=== PATIENT | male | born 1970 | race Hispanic/Latino ===

== ENCOUNTER 2021-01-12 20:04 | Observation (INO) | payer MEDICARE ==
[~2021-01-12] VITALS: Ht 165.1 cm; Wt 67.0 kg
[2021-01-12 21:10] LABS: BASOPHILS % (AUTO) 0.5 % (0.0-5.0); EOSINOPHILS % (AUTO) 4.5 % (0.0-8.0); LYMPHOCYTES % (AUTO) 25.8 % (21.0-51.0); MEAN CORPUSCULAR HEMOGLOBIN 31.4 pg (27.0-33.0); MEAN CORPUSCULAR HGB CONC 34.1 g/dL (32.0-36.0); MEAN CORPUSCULAR VOLUME 92.2 fL (79-99); MONOCYTES % (AUTO) 9.6 % (3.0-13.0); NEUTROPHILS % (AUTO) 59.3 % (40.0-77.0); PLATELET COUNT (AUTO) 236 K/uL (130-400); RED BLOOD CELL COUNT(AUTO) 3.47 MIL/uL (4.50-6.20); RED CELL DISTRIBUTION WIDTH 11.8 % (11.0-15.5); WHITE BLOOD COUNT (AUTO) 7.6 K/uL (4.8-10.8)
[2021-01-12 21:25] LABS: CREATININE 1.6 mg/dL (0.5-1.5); POTASSIUM 3.6 mmol/L (3.5-5.1)
[2021-01-12 21:29] LABS: ALBUMIN 3.6 g/dL (3.5-5.0); BILIRUBIN,TOTAL 0.4 mg/dL (0.2-1.0); MAGNESIUM 1.6 mg/dL (1.80-2.40); TOTAL PROTEIN, SERUM 7.6 g/dL (6.0-8.3)
[2021-01-12 21:51] VITALS: BP 134/82
[2021-01-12] MEDS ORDERED: FENO48TA9 PO (22:54)
[2021-01-12] MEDS ORDERED: RISP0.5T61 PO (22:54)
[2021-01-12] MEDS ORDERED: LAMO150T PO (22:54)
[2021-01-12] MEDS ORDERED: LACT10SO62 PO (22:54)
[2021-01-12] MEDS ORDERED: CLON1TAB12 PO (22:54)
[2021-01-12] MEDS ORDERED: FLUO40CA7 PO (22:54)
[2021-01-12] MEDS ORDERED: BROM5CAP3 PO (22:54)
[2021-01-12] MEDS ORDERED: LUBI24CA2 PO (22:54)
[2021-01-12] MEDS ORDERED: CYAN25006 PO (22:54)
[2021-01-12] MEDS ORDERED: FOLI0.8T3 PO (22:54)
[2021-01-12] MEDS ORDERED: FISH1CAP20 PO (22:54)
[2021-01-12] MEDS ORDERED: PROP10TA72 PO (22:54)
[2021-01-12] MEDS ORDERED: BISA10SU11 RC (22:54)
[2021-01-12] MEDS ORDERED: LEVO88CA4 PO (22:54)
[2021-01-12] MEDS ORDERED: [UNRECOGNIZED DRUG - CODE] PO (22:54)
[2021-01-12] MEDS ORDERED: PHARMACY COMMUNICATION MISC SCH (23:45)
[2021-01-13] MEDS ORDERED: ACETAMINOPHEN 325 MG TAB PO PRN ×2
[2021-01-13] MEDS ORDERED: 0.9% NACL 500ML IV.SOLN 500 ML IV SCH
[2021-01-13] MEDS ORDERED: LEVETIRACETAM 500 MG/5 ML SD VIAL IV ONE (00:26)
[2021-01-13] MEDS ORDERED: LEVETIRACETAM 1,000 MG in 0.9%NACL 100ML 100 ML IV ONE (00:30)
[2021-01-13] MEDS ORDERED: PHARMACY COMMUNICATION MISC SCH (00:30)
[2021-01-13 05:15] VITALS: BP 135/67
[2021-01-13] MEDS ORDERED: LEVETIRACETAM 1,000 MG in 0.9%NACL 100ML 100 ML IV SCH (06:00)
[2021-01-13 06:39] LABS: HEMATOCRIT 32.5 % (42-54); MEAN CORPUSCULAR HEMOGLOBIN 30.8 pg (27.0-33.0); MEAN CORPUSCULAR HGB CONC 33.8 g/dL (32.0-36.0); RED BLOOD CELL COUNT(AUTO) 3.57 MIL/uL (4.50-6.20); RED CELL DISTRIBUTION WIDTH 11.6 % (11.0-15.5)
[2021-01-13 06:49] LABS: CREATININE 1.4 mg/dL (0.5-1.5); POTASSIUM 3.8 mmol/L (3.5-5.1)
[2021-01-13] MEDS: FAMOTIDINE 20MG VIAL IV SCH ×2 (07:42→21:08)
[2021-01-13] MEDS: LEVETIRACETAM 500 MG TABLET PO SCH ×2 (07:42→21:08)
[2021-01-13] MEDS ORDERED: LORAZEPAM 2 MG/ML 1 ML VIAL ONE ×2 (11:19→22:25)
[2021-01-13] MEDS ORDERED: LORAZEPAM 2 MG/ML 1 ML VIAL IVP SCH (11:30)
[2021-01-13 11:31] VITALS: BP 151/82
[2021-01-13 17:49] VITALS: BP 119/58
[2021-01-13 20:12] VITALS: BP 126/84
[2021-01-13] MEDS ORDERED: DiphenhydrAMINE HCL 50 MG/ML VIAL ONE (22:26)
[2021-01-13] MEDS ORDERED: LORAZEPAM 2 MG/ML 1 ML VIAL IVP PRN (23:00)
[2021-01-13] MEDS ORDERED: DiphenhydrAMINE HCL 50 MG/ML VIAL IV PRN (23:00)
[2021-01-14] VITALS: BP 126/63
[2021-01-14 04:00] VITALS: BP 157/66
[2021-01-14] MEDS: LEVETIRACETAM 500 MG TABLET PO SCH (09:00)
[2021-01-14] MEDS: FAMOTIDINE 20MG VIAL IV SCH (09:00)
== END 2021-01-14 16:15 ==
LOC: EDH 20:06 → EDSEX 20:06 → EDHIP 23:49 → 3BH 01-13 22:40
PROVIDERS: ADMIT Family Medicine; ATTEND Family Medicine
DX: G40.909 Epilepsy, unspecified, not intractable, without status epilepticus (principal); E03.9 Hypothyroidism, unspecified; D64.9 Anemia, unspecified; E11.9 Type 2 diabetes mellitus without complications; R32 Unspecified urinary incontinence; E78.5 Hyperlipidemia, unspecified; F73 Profound intellectual disabilities; G80.9 Cerebral palsy, unspecified; E29.1 Testicular hypofunction; H91.90 Unspecified hearing loss, unspecified ear; R41.82 Altered mental status, unspecified; I10 Essential (primary) hypertension; I25.10 Atherosclerotic heart disease of native coronary artery without angina pectoris; I44.0 Atrioventricular block, first degree; I45.10 Unspecified right bundle-branch block; J44.9 Chronic obstructive pulmonary disease, unspecified; R13.10 Dysphagia, unspecified; K64.9 Unspecified hemorrhoids; F63.81 Intermittent explosive disorder; K80.20 Calculus of gallbladder without cholecystitis without obstruction; M94.0 Chondrocostal junction syndrome [Tietze]
CPT/HCPCS: 36415 ×2; 70450; 71045; 80048; 80053; 82542; 82550 ×2; 83735; 84443; 84484 ×3; 85025; 85027; 93005; 96365; 96366; 96375 ×2; 96376 ×2; 99285; G0378 ×40; J1200 ×2; J1953 ×2; J2060 ×3; J3490 ×2

== ENCOUNTER 2021-03-05 13:51 | Emergency (ER) | payer MEDICARE ==
[~2021-03-05] VITALS: Ht 172.7 cm; Wt 72.6 kg
[~2021-03-05 13:51] MED LIST: BISA10SU11 RC; BROM5CAP3 PO; CLON1TAB12 PO; CYAN25006 PO; FENO48TA9 PO; FISH1CAP20 PO; FLUO40CA7 PO; FOLI0.8T3 PO; LACT10SO62 PO; LAMO150T PO; LEVO88CA4 PO; LUBI24CA2 PO; PROP10TA72 PO; RISP0.5T61 PO; [UNRECOGNIZED DRUG - CODE] PO
[2021-03-05] MEDS ORDERED: LORAZEPAM 2 MG/ML 1 ML VIAL ONE (18:53)
[2021-03-05] MEDS ORDERED: HALOPERIDOL INJ 5 MG/ML VIAL ONE (18:53)
[2021-03-05] MEDS ORDERED: DiphenhydrAMINE HCL 50 MG/ML VIAL ONE (18:54)
[2021-03-05 19:07] VITALS: BP 152/95
[2021-03-05] MEDS ORDERED: HALOPERIDOL INJ 5 MG/ML VIAL IM SCH (19:30)
[2021-03-05] MEDS ORDERED: LORAZEPAM 2 MG/ML 1 ML VIAL IM ONE (19:30)
[2021-03-05] MEDS ORDERED: DiphenhydrAMINE HCL 50 MG/ML VIAL IM ONE (19:30)
[2021-03-05 19:43] LABS: BASOPHILS % (AUTO) 0.4 % (0.0-5.0); HEMATOCRIT 31.1 % (42-54); LYMPHOCYTES % (AUTO) 30.9 % (21.0-51.0); MEAN CORPUSCULAR HEMOGLOBIN 30.6 pg (27.0-33.0); MEAN CORPUSCULAR HGB CONC 33.8 g/dL (32.0-36.0); MEAN CORPUSCULAR VOLUME 90.7 fL (79-99); MONOCYTES % (AUTO) 6.6 % (3.0-13.0); NEUTROPHILS % (AUTO) 57.7 % (40.0-77.0); PLATELET COUNT (AUTO) 407 K/uL (130-400); RED BLOOD CELL COUNT(AUTO) 3.43 MIL/uL (4.50-6.20); RED CELL DISTRIBUTION WIDTH 11.7 % (11.0-15.5); WHITE BLOOD COUNT (AUTO) 7.1 K/uL (4.8-10.8)
[2021-03-05 19:57] LABS: CREATININE 1.6 mg/dL (0.5-1.5); POTASSIUM 3.4 mmol/L (3.5-5.1)
[2021-03-05 20:00] LABS: INR 1.08 (0.85-1.15); PROTHROMBIN TIME 11.7 SEC (9.6-11.6)
[2021-03-05 20:01] LABS: PARTIAL THROMBOPLASTIN TIME 27.1 SEC (26.3-35.5)
[2021-03-05 20:02] LABS: ALBUMIN 3.2 g/dL (3.5-5.0); BILIRUBIN,TOTAL 0.2 mg/dL (0.2-1.0); TOTAL PROTEIN, SERUM 7.9 g/dL (6.0-8.3)
[2021-03-05 20:16] LABS: B-TYPE NATRIURETIC PEPTIDE 59 pg/mL (0-100)
== END 2021-03-05 21:11 ==
LOC: EDH 13:51
DX: G40.909 Epilepsy, unspecified, not intractable, without status epilepticus (principal); E87.6 Hypokalemia; F70 Mild intellectual disabilities; Z79.899 Other long term (current) drug therapy; Z88.2 Allergy status to sulfonamides
CPT/HCPCS: 36415; 71045; 80053; 82550; 83880; 84484; 85025; 85610; 85730; J1200; J1630; J2060